=== PATIENT | female | born 1970 | race Caucasian/White ===

== ENCOUNTER 2016-10-17 15:28 | Emergency (ER) | payer SELFPAY ==
--- NOTE | 2016-10-17 18:16 | ERNOTE ---
Integumentary HPI - Narrative Date of Service: 10/17/16 - General Presenting Symptoms: rash Time Seen by Provider: 10/17/16 18:03 Source: patient Exam Limitations: no limitations - Immun/Allergies/Home Medications Immunizations: IMMUNIZATION HX Immunizations Up to Date Yes History of Influenza Vaccine Yes Allergies/Adverse Reactions: Allergies Allergy/AdvReac Type Severity Reaction Status Date / Time No Known Allergies Allergy Verified 10/17/16 15:47 Home Medications: HOME MEDICATIONS Triamcinolone Acetonide 1 appl TP 3XW #30 gm 10/17/16 [Last Taken Unknown] - Pain Pain Score: 0 - History of Present Illness Narrative: Reports rash x3 days after performing yard work. Notes rash is "everywhere" to BUE, trunk, buttock, legs, neck and face. Denies any difficulty breathing. Severity: moderate Exposure: Reports: poison micaela/oak Modifying Factors - (Improves): Reports: nothing Modifying Factors - (Worsens): Reports: nothing Associated Symptoms: Reports: rash, other - itching. Denies: swelling/mass/ lumps, edema, fever Review of Systems - Review of Systems Constitutional: Absent: fever, chills, fatigue, malaise ENT: Absent: throat swelling, other - denies facial swelling Respiratory: Absent: shortness of breath, cough, wheezing Cardiology: Absent: chest pain Gastrointestinal/Abdominal: Absent: nausea, vomiting Skin: Present: rash, other - itching, denies pain - Patient's Past Medical History Patient History - Medical: No pertinent hx Patient History - Cardiac/Respiratory: No pertinent hx Patient History - Cancer: No Hx of Cancer Patient History - Surgical Procedures: Patient History - Other: None - Social History Living Situations: home Psych History: No pertinent hx Smoking Status: Current every day smoker Have you smoked in the past 12 months: Yes Alcohol Use: none Drug Use: none - Immunizations Immunizations Up to Date: Yes History of Influenza Vaccine: Yes Physical Exam - Physical Exam General Appearance: Present: wd/wn, alert, no apparent distress Head Exam: Present: normal inspection Ears, Nose, Throat: Present: normal pharynx. Absent: other - no swelling of lips or tongue Respiratory: Present: no respiratory distress, normal breath sounds, no accessory muscle use. Absent: rales, rhonchi, wheezing Cardiovascular/Chest: Present: regular rate, rhythm, no murmur Skin Exam: Present: normal color, warm/dry, skin rash - patches of vesicles and papules scattered to BUE, chest, buttock, upper legs, few to face ED Progress - Vital Signs Patient's Vital Signs:: I have reviewed the patient's vital signs. Vital Signs: Vital Signs 10/17/16 15:43 Temperature 36.4 C L Respiratory 16 Rate Blood Pressure 147/80 O2 Sat by Pulse 98 Oximetry - Progress/Reassessment Chief Complaint: Rash Progress:: Unchanged Departure Clinical Impression: Contact dermatitis due to plant - Departure Disposition: Home self-care Condition: Good Instructions: Poison Micaela Dermatitis Additional Instructions: Use of Dimitri's Solution ([place]) may help dry weeping rash sites Seek care immediately for any difficulty breathing Referrals: Monika Chaudhary MD [Primary Care Provider] - Prescriptions: Triamcinolone Acetonide 1 appl TP 3XW #30 gm
[2016-10-17] MEDS ORDERED: DEXAMETHASONE 4 MG TABLET PO ONE (18:20)
[2016-10-17] MEDS ORDERED: TRIAMCINOLONE ACETONIDE 40 MG/ML VIAL IJ ONE (18:20)
[2016-10-17] MEDS ORDERED: TRIAMCINOLONE ACETONIDE 40 MG/ML VIAL IM ONE (18:24)
[2016-10-17] MEDS ORDERED: TRIAMCINOLONE ACETONIDE 40 MG/ML VIAL ONE (18:26)
[2016-10-17] MEDS ORDERED: DEXAMETHASONE 4 MG TABLET ONE (18:27)
[2016-10-17 18:55] VITALS: BP 127/74
== END 2016-10-17 18:30 | disposition home or self-care (01) ==
LOC: ER 15:28
DX: L25.5 Unspecified contact dermatitis due to plants, except food (principal); Z72.0 Tobacco use